=== PATIENT | male | born 1950 | race Caucasian/White ===

== ENCOUNTER → 2020-04-08 11:03 | Outpatient (CLI) | payer MEDICARE, OTHER ==
[2020-04-08 11:30] LABS: BASOPHILS 0.4 % (0-2); EOSINOPHILS 3.2 % (0-7); HEMATOCRIT 44.7 % (42.0-54.0); HEMOGLOBIN 15.5 g/dL (13.5-17.5); IMMATURE GRANULOCYTES 0.4 % (0-5); LYMPHOCYTES 30.2 % (15-50); MCH 29.5 pg (26.0-34.0); MCHC 34.7 g/dL (31.0-37.0); MEAN PLATELET VOLUME 9.1 fL (7.4-10.4); MONOCYTES 10.1 % (2-11); NEUTROPHILS 55.7 % (40-80); PLATELET COUNT 165 10x3/uL (130-400); RBC 5.26 10x6/uL (4.20-6.10); RDW 13.3 % (11.5-14.5); WBC 5.3 10x3/uL (4.8-10.8)
== END | disposition home or self-care (01) ==
LOC: D.LAB 11:03
PROVIDERS: ATTEND Psychiatry & Neurology Neurology
DX: G43.909 Migraine, unspecified, not intractable, without status migrainosus (principal)